=== PATIENT | female | born 1990 | race Caucasian/White ===

== ENCOUNTER 2017-04-24 18:53 | Emergency (ER) | payer MEDICAID ==
[~2017-04-24] VITALS: Ht 162.6 cm; Wt 77.0 kg
[~2017-04-24 18:53] MED LIST: IBUP-1542 PO; PRENAT PO
[2017-04-24 19:28] VITALS: Ht 162.6 cm; Wt 77.0 kg
--- NOTE | 2017-04-24 22:29 | ERD ---
ER Documentation Chief Complaint Chief Complaint back pain and fever x 3 days; ibuprofen at 6pm HPI headache, back pain , pelvic pressure and dysuria x 3 days ROS All systems reviewed and are negative except as per history of present illness. Medications Home Meds Active Scripts Ibuprofen* (Ibuprofen*) 600 Mg Tablet, 600 MG PO Q6, #20 TAB 0 Refills Prov:CIARA ROJAS MD 11/06/15 Reported Medications Multivit/Min/Fol Ac/Iron/Pren* ( S*) 1 Tab Tab, 1 TAB PO DAILY, TAB 11/03/15 Allergies Allergies: Coded Allergies: No Known Allergy (Unverified , 11/03/15) Physical Exam Vitals Vital Signs Date Time Temp Pulse Resp B/P Pulse Ox O2 Delivery O2 Flow Rate FiO2 04/24/17 19:28 100.0 121 20 125/78 97 Vitals stable, triage notes reviewed Physical Exam Const: Well-nourished, well hydrated, well appearing 26-year-old female in no acute distress Resp: Respirations even and unlabored, clear to auscultation bilaterally no rales wheezes or rhonchi Cardio: Regular rate and rhythm, no murmurs Abd: Soft, non tender, non distended. No CVA tenderness Back Exam: Skin: No bruising or rash Compartments: Soft Motor: Normal flexion and extension of bilateral hip/knee/ ankle/foot Sensation: Intact to light touch throughout Bones: No midline TTP Neur: Awake and alert Psych: Normal Mood and Affect Results 24 hrs Laboratory Tests Test 04/25/17 00:16 Bedside Urine pH (LAB) 6.0 Bedside Urine Protein (LAB) 1+ Bedside Urine Glucose (UA) Negative Bedside Urine Ketones (LAB) 1+ Bedside Urine Blood 3+ Bedside Urine Nitrite (LAB) Negative Bedside Urine Leukocyte Esterase (L 2+ Current Medications Medications (Trade) Dose Ordered Sig/Ketan Route PRN Reason Start Time Stop Time Status Last Admin Dose Admin Ibuprofen (Motrin) 600 mg ONCE ONCE PO 04/24/17 22:30 04/24/17 22:31 DC 04/24/17 22:36 Urinalysis positive for +2 leukocytosis, +3 microscopic hematuria, ketones are negative, findings are consistent with a urinary tract infection Procedures/MDM This 26-year-old female presents to emergency department for back pain, fever, dysuria, for the last 3 days, patient denies any nausea, vomiting, or chills. Emergency room course includes history and physical exam, negative for CVA tenderness, patient urinalysis positive for leukocytosis and microscopic hematuria suggestive of infection, plan to treat patient with Macrobid 100 mg 1 tab p.o. twice daily 7 days and Pyridium 200 mg 1 tab p.o. 3 times daily 3 days. Increase fluids, increase rest, no sexual activity until antibiotic course is complete, follow-up with primary care physician if symptoms persist once antibiotics stopped, return to emergency department for any worsening of symptoms while on antibiotics. Patient is stable with no new complaints during ER course, clinically there is no current evidence to suggest pyelonephritis, noninfectious urethritis, foreign body in bladder, vaginitis due to allen, STI , interstitial Vannas tinnitus pelvic organ prolapse, urethral cancer or any other emergent condition appearing to require further evaluation or hospitalization. I feel the patient is stable for discharge at this time. I have discussed results, examination findings, the treatment plan with the patient and family present prior to discharge. Indications for emergent reevaluation, side effects of medication were also discussed. All questions were answered. Patient verbalizes understanding and agrees with plan of care. Departure Diagnosis: Primary Impression: UTI (urinary tract infection) Urinary tract infection type: acute cystitis Hematuria presence: with hematuria Qualified Code: N30.01 - Acute cystitis with hematuria Condition: Good Patient Instructions: Understanding Urinary Tract Infections (UTIs) [facility] Additional Instructions: Thank you for for coming to [facility] for your care today. Please ask your nurse or provider if you have questions about your care today and do not leave until all your questions have been answered. Please use any medications given as directed and follow-up with your doctor (or the doctor you were referred to) in the next 2-3 days. If you do not have a primary care doctor you may follow up at the [facility] (listed below). You may also use motrin and tylenol as needed for fever and/or pain unless instructed otherwise by your provider or nurse. Indications for more urgent follow-up have been discussed, but you may return to the Emergency Department at ANY time for any worrisome or worsening symptoms. If you have abdominal pain, please know that no test or exam you received is perfect and you should follow up within 8 hours for continued pain. If you had any imaging studies today, such as an X-Ray or CT Scan, these studies will be reviewed later by a radiologist. You will be called if there are important findings that were not identified today, so make sure the contact information you provided at registration is correct. If you received any narcotic pain control medicine today, such as Vicodin, Morphine or Dilaudid, your coordination and judgment may be affected for a number of hours. Please do not drive or operate heavy machinery, and you may want someone to assist you at home. If you were given a prescription for narcotic medication, be aware that it is very addictive- use sparingly and only if necessary. KAILA ROJAS Apr 24, 2017 22:29
[2017-04-24] MEDS ORDERED: IBUPROFEN 600 MG TAB PO ONE (22:30)
[2017-04-25 00:16] LABS: URINE BLOOD (Dip) POC 3+ (NEGATIVE)
[2017-04-25] MEDS ORDERED: PHEN-538 PO (00:29)
[2017-04-25] MEDS ORDERED: NITR-58 PO (00:29)
[2017-04-25 00:57] VITALS: BP 100/55; PULSE 90; RESP 17; TEMP 98.3
== END 2017-04-25 00:59 | disposition home or self-care (01) ==
LOC: FTE 18:53
DX: N30.01 Acute cystitis with hematuria (principal)
CPT/HCPCS: 81003; Z7502; Z7610; 99283